=== PATIENT | male | born 1950 | race American Indian/Alaskan Native ===

== ENCOUNTER 2018-04-26 20:04 | Emergency (ER) | payer SELFPAY ==
[~2018-04-26 20:04] MED LIST: ADRENALIN ONE; CALCIUM CHLORIDE IV ONE; SODIUM BICARBONATE ONE
--- NOTE | 2018-04-26 20:30 | Emergency Department Report ---
ED CPR HPI - General Chief Complaint: Cardiac Arrest/CPR Stated Complaint: CARDIAC ARREST Time Seen by Provider: 04/26/18 20:19 Source: patient Mode of arrival: Ambulatory Limitations: No Limitations - History of Present Illness Initial Comments: 68-year-old -[place] male presents to the emergency department in cardiac arrest with CPR underway. Apparently the patient collapsed while in the garage. The family called 911 but nobody started CPR until EMS arrived which was about 15 minutes later. EMS placed a Marcel airway and an IV, started chest compressions, and given a total of 3 rounds of epinephrine. The patient was in asystole the entire way. EMS checked his blood sugar and said it was about 150. The patient arrives to the emergency department still pulseless, receiving bag valve ventilation and chest compressions. ED Review of Systems ROS: Stated complaint: CARDIAC ARREST Other details as noted in HPI Comment: Unobtainable due to pts medical conditions ED Physical Exam - General Limitations: No Limitations - Other Other exam information: GENERAL: Patient is ill-appearing and unresponsive. HEENT: Normocephalic. Atraumatic. EYES: Pupils are fixed and dilated.. NECK: Supple. Trachea is midline. CHEST/LUNGS: No spontaneous breath sounds. HEART/CARDIOVASCULAR: No spontaneous heart sounds. ABDOMEN: Abdomen is soft. Obese habitus. SKIN: Skin is cool and dry. NEURO: The patient is unresponsive to any verbal or tactile stimuli. MUSCULOSKELETAL: There is no obvious deformity. There is no evidence of acute injury. - Intubation Time Out Performed: No Laryngoscope: Opal Size: 4 ET Tube Size: 7.5 Tube Secured Depth (cm): 24 Tube Secured Location: lips Tube Placement Confirmation: visualized tube passing t, equal breath sounds bila t, confirmation by capnometr Intubation Complications: none ED Medical Decision Making - Medical Decision Making The patient had received 3 rounds of epinephrine, bag valve ventilation from a Marcel airway and chest compressions with ACLS protocol prior to arrival. Upon arrival to the emergency department the patient was transferred to bed 21 where we placed him on our monitors and immediately continued high efficiency chest compressions. I removed the Marcel airway and intubated the patient with a 7.5 ET tube. There was condensation within the tube, bilateral breath sounds and color change capnography. We did for rounds of ACLS protocol including epinephrine, sodium bicarbonate, calcium, chest compressions and bag valve ventilation. With each passing rhythm check, the patient was asystole and pulseless except for the final wound in which the patient went to pulseless electrical activity. At this time, the patient had been pulseless for close to 45 minutes and total and there did not appear to be any hopes of return of spontaneous circulation or functional return. I took a bedside ultrasound and looked at the patient's heart but there was no movement, squeeze, or even any flutter. At this point time of was called at 2017. - Differential Diagnosis dysrhythmia, myocardial infarction, pulmonary embolism, CVA Critical Care Time: Yes Critical care time in (mins) excluding proc time.: 20 Critical care attestation.: If time is entered above; I have spent that time in minutes in the direct care of this critically ill patient, excluding procedure time. Critical care time was spent on this patient and during his initial evaluation, supervision of ACLS protocol, and discussion with the patient's family Critical Care Time: 20 minutes ED Disposition Clinical Impression: Cardiac arrest Respiratory failure Qualifiers: Chronicity: acute Respiratory failure complication: unspecified whether with hypoxia or hypercapnia Qualified Code(s): J96.00 - Acute respiratory failure, unspecified whether with hypoxia or hypercapnia Disposition: DC-20 Is pt being admited?: No Referrals: LEO TUCKER MD [Primary Care Provider] - 3-5 Days Time of Disposition: 21:19
== END 2018-04-26 23:49 ==
LOC: ED 20:04
DX: I46.9 Cardiac arrest, cause unspecified (principal); J96.00 Acute respiratory failure, unspecified whether with hypoxia or hypercapnia
CPT/HCPCS: 31500; 92950; 99285; J0171